=== PATIENT | female | born 1955 | race Caucasian/White ===

== ENCOUNTER 2017-09-15 11:25 | Emergency (ER) | payer OTHER ==
[~2017-09-15] VITALS: Ht 157.5 cm; Wt 54.4 kg
[~2017-09-15 11:25] MED LIST: ABILIFY10 MG; AMBIEN 10 MG TA10 MG PO; AMBIEN 5 MG TABL5 M1; AUGMENTIN 875875 MG PO; DESYREL150 MG; FLONASE 0.05%50 MCG NASAL; IBUPROFEN 600600 M1 PO; KEFLEX500 MG PO; LATUDA20 MG PO; MOBIC15 MG PO; PRISTIQ50 M1; ROBAXIN 750 MG750 M1 PO; SILVADENE20 GM TP; ULTRAM 50MG TAB50 MG PO; VALIUM5 MG PO; XANAX 0.25 MG0.25 MG; XANAX1 MG PO; ZOLPIDEM TART12.5 MG PO; [UNRECOGNIZED DRUG - OTHER] PO; [UNRECOGNIZED DRUG - REMARK]
[2017-09-15 13:10] LABS: URINE BILIRUBIN NEGATIVE (Negative); URINE BLOOD NEGATIVE (Negative); URINE CLARITY CLEAR; URINE COLOR YELLOW; URINE GLUCOSE-RANDOM* NEGATIVE (Negative); URINE KETONES NEGATIVE (Negative); URINE LEUKOCYTES NEGATIVE (Negative); URINE NITRITE NEGATIVE (Negative); URINE PROTEIN (DIPSTICK) NEGATIVE (Negative); URINE SPECIFIC GRAVITY <= 1.005 (1.005-1.035); URINE UROBILINOGEN 0.2 E.U./dl (0.2-1.0)
[2017-09-15 13:17] LABS: AMP/METHAMP Negative (Negative); BARBITURATES Negative (Negative); BENZODIAZEPINES POSITIVE (Negative); COCAINE Negative (Negative); METHADONE Negative (Negative); OPIATES Negative (Negative); PCP Negative (Negative)
[2017-09-15] MEDS ORDERED: IBUPROFEN 600600 M1 PO (14:00)
[2017-09-15] MEDS ORDERED: TIZANIDINE HCL4 MG PO (14:00)
[2017-09-15] MEDS ORDERED: NORCO 5-325 TA1 EACH PO (14:00)
== END 2017-09-15 14:40 | disposition home or self-care (01) ==
LOC: ER 11:25
PROVIDERS: Nurse Practitioner
DX: G89.29 Other chronic pain (principal); M54.16 Radiculopathy, lumbar region; F32.9 Major depressive disorder, single episode, unspecified; F41.9 Anxiety disorder, unspecified; F17.210 Nicotine dependence, cigarettes, uncomplicated

== ENCOUNTER 2017-12-31 20:14 | Emergency (ER) | payer OTHER ==
[~2017-12-31] VITALS: Ht 157.5 cm; Wt 49.9 kg
[~2017-12-31 20:14] MED LIST changes: +NORCO 5-325 TA1 EACH PO; +TIZANIDINE HCL4 MG PO
[2017-12-31] MEDS ORDERED: FLEXERIL PO (22:37)
[2017-12-31] MEDS ORDERED: MORPHINE SULFAT15 M3 PO (22:37)
[2017-12-31] MEDS ORDERED: LATUDA40 MG PO (23:32)
[2018-01-01 00:06] VITALS: BP 132/80
== END 2017-12-31 23:59 | disposition home or self-care (01) ==
LOC: ER 20:14
DX: M54.5 Low back pain (principal); G89.29 Other chronic pain; F41.9 Anxiety disorder, unspecified; F32.9 Major depressive disorder, single episode, unspecified; F17.210 Nicotine dependence, cigarettes, uncomplicated

== ENCOUNTER 2018-04-20 14:29 | Emergency (ER) | payer OTHER ==
[~2018-04-20] VITALS: Ht 157.5 cm; Wt 54.9 kg
[~2018-04-20 14:29] MED LIST changes: +FLEXERIL PO; +LATUDA40 MG PO; +MORPHINE SULFAT15 M3 PO
[2018-04-20] MEDS ORDERED: OCUFLOX5 ML OPHTHALMIC (16:52)
[2018-04-20 17:06] VITALS: BP 148/90
== END 2018-04-20 17:07 | disposition home or self-care (01) ==
LOC: ER 14:29
DX: M54.5 Low back pain (principal); G89.29 Other chronic pain; H60.92 Unspecified otitis externa, left ear; F17.210 Nicotine dependence, cigarettes, uncomplicated; F32.9 Major depressive disorder, single episode, unspecified; F41.9 Anxiety disorder, unspecified

== ENCOUNTER 2020-04-28 11:26 | Emergency (ER) | payer OTHER ==
[~2020-04-28] VITALS: Ht 160 cm; Wt 52.2 kg
[~2020-04-28 11:26] MED LIST changes: +OCUFLOX5 ML OPHTHALMIC
[2020-04-28 13:59] LABS: ABSOLUTE NEUTROPHILS 7.8 thou/uL (1.4-8.2); BASOPHILS 0.8 % (0.0-2.0); EOSINOPHILS 1.7 % (0.0-3.0); HEMATOCRIT 40.2 % (37.0-47.0); HEMOGLOBIN 13.2 gm/dL (12.0-15.0); LYMPHOCYTES 22.1 % (24.0-44.0); MCH 29.6 pg (26.0-34.0); MCHC 32.8 g/dL (28.0-37.0); MCV 90.1 fL (80.0-100.0); MONOCYTES 9.3 % (1.0-8.0); PLATELET COUNT 329 thou/uL (150-400); POLYS 66.1 % (36.0-66.0); RBC 4.46 mil/uL (4.20-5.00); WBC 11.8 thou/uL (4.0-11.0)
[2020-04-28 14:11] LABS: ANION GAP 6 mmol/L (7-16); BUN 18 mg/dL (7-18); CALCIUM 9.6 mg/dL (8.5-10.1); CHLORIDE 104 mmol/L (98-107); CO2 29 mmol/L (21-32); CREATININE 0.8 mg/dL (0.6-1.0); GLUCOSE 115 mg/dL (74-106); SODIUM 139 mmol/L (136-145)
--- NOTE | 2020-04-28 14:16 | EKG ---
[facility] [place] [address] ELECTROCARDIOGRAM REPORT Name: JASON GRUBBS Room #: REG [facility]#: [id number] Admission: 04/28/20 Attend Phys: Discharge: Date of : 57 Report #: [id number] THIS REPORT FOR: cc: MANDY Adrian family physician/PCP MANDY - Kaylah family physician/PCP Regino Cadena MD [facility] ~ THIS REPORT FOR: //name// [facility] ED Test Date: 2020-04-28 Test Time: 11:37:23 Pat Name: JASON GRUBBS Department: Room: Gender: F [employer]ter: [facility] [place] 1955 Requested By: Kristal Marvin Order Number: [id number] MD: Regino Cadena Measurements Intervals [place] Rate: 80 P: 58 MN: 151 QRS: 25 QRSD: 111 T: 10 QT: 404 QTc: 466 Interpretive Statements Sinus rhythm Atrial premature complex No previous ECG available for comparison Electronically Signed On 04-28-2020 14:16:32 HVAC SPECIALIST by Regino Cadena [email or web address] <ELECTRONICALLY SIGNED> By: Regino Cadena MD, FAC 04/28/20 1416 D: [id number] Regino Cadena MD, FACC /EPI
[2020-04-28 14:19] LABS: LIPASE 62 U/L (73-393); TROPONIN-I <0.06 ng/mL (<0.06)
[2020-04-28 14:22] LABS: ALBUMIN 4.8 g/dL (3.4-5.0); SGOT 11 U/L (15-37); SGPT 21 U/L (30-65); TOTAL BILIRUBIN 0.4 mg/dL (0.2-1.0); TOTAL PROTEIN 7.9 g/dL (6.4-8.2); TROPONIN-I <0.06 ng/mL (<0.06)
[2020-04-28] MEDS ORDERED: VISTARIL 25 MG25 M1 PO (14:41)
[2020-04-28 15:06] VITALS: BP 135/75
== END 2020-04-28 15:05 | disposition home or self-care (01) ==
LOC: ER 11:26
PROVIDERS: Physician Assistant
DX: F41.9 Anxiety disorder, unspecified (principal); R07.89 Other chest pain; R00.2 Palpitations; F32.9 Major depressive disorder, single episode, unspecified; F17.210 Nicotine dependence, cigarettes, uncomplicated; Z98.890 Other specified postprocedural states; Z79.899 Other long term (current) drug therapy